=== PATIENT | male | born 1960 | race Caucasian/White ===

== ENCOUNTER 2018-03-01 06:04 | Day surgery (SDC) | payer OTHER ==
[2018-03-01] MEDS ORDERED: MIDAZOLAM 1 MG/ML 2 ML INJ ×2 (08:10)
[2018-03-01] MEDS ORDERED: FENTAnyl 50 MCG/ML VIAL (08:11)
== END 2018-03-01 14:51 | disposition home or self-care (01) ==
LOC: GIL 06:04
DX: Z12.11 Encounter for screening for malignant neoplasm of colon (principal); D12.4 Benign neoplasm of descending colon; K64.4 Residual hemorrhoidal skin tags
CPT/HCPCS: 45385; 88305